=== PATIENT | female | born 1945 | race Caucasian/White ===

== ENCOUNTER → 2016-12-25 | Outpatient (CLI) | payer BC ==
[~2016-12-25] MED LIST: ACET-1138 PO; CLC100 PO; DLCS PR; PRT40 PO; RXC5 PO
[2016-12-25 11:18] LABS: BASO % 0.8 %; BASO ABS # 0.04 K/uL (0-0.2); COMPLETE YES; HEMATOCRIT 40.1 % (37-47); IG% 0.2 %; LYMPH % 41.6 %; LYMPH ABS # 2.21 K/uL (1.2-3.4); MEAN CELL VOLUME 91.6 fL (80-100); MEAN CORPUSCULAR HEMOGLOBIN 29.9 pg (25-34); MEAN CORPUSCULAR HGB CONC 32.7 g/dl (32-36); MEAN PLATELET VOLUME 9.7 fL (7.4-10.4); NEUT % 45.4 %; PLATELET COUNT 284 K/uL (130-400); RED BLOOD COUNT 4.38 M/uL (4.2-5.4); WHITE BLOOD COUNT 5.31 K/uL (4.8-10.8)
[2016-12-25 11:26] LABS: ALT/SGPT 17 U/L (12-78); AST/SGOT 9 U/L (15-37); BLOOD UREA NITROGEN 16 mg/dl (7-18); BUN/CREATININE RATIO 22.1 (10-20); CALCIUM 8.8 mg/dl (8.5-10.1); CARBON DIOXIDE 28 mmol/L (21-32); CHLORIDE 109 mmol/L (98-107); CREATININE 0.71 mg/dl (0.60-1.20); GLUCOSE 87 mg/dl (70-99); POTASSIUM 4.4 mmol/L (3.5-5.1); SODIUM 145 mmol/L (136-145)
[2016-12-25 11:29] LABS: ALB/GLOB RATIO 1.2 (0.9-2); ALKALINE PHOSPHATASE 87 U/L (45-117); CHOLESTEROL 194 mg/dl (0-200); CHOLESTEROL/HDL RATIO 3.5; HDL CHOLESTEROL 56 mg/dl; LDL CHOLESTEROL CALCULATED 114 mg/dl; TRIGLYCERIDES 118 mg/dl (0-150); VERY LOW DENSITY LIPOPROT CALC 24 mg/dl
== END | disposition home or self-care (01) ==
LOC: C.LABBC 07:47
PROVIDERS: ATTEND Internal Medicine
DX: G47.00 Insomnia, unspecified (principal)

== ENCOUNTER → 2017-01-29 | Outpatient (CLI) | payer BC | END | disposition home or self-care (01) | LOC: C.MAMM 07:52 | PROVIDERS: ATTEND Internal Medicine | DX: M81.0 Age-related osteoporosis without current pathological fracture (principal); S82.143A Displaced bicondylar fracture of unspecified tibia, initial encounter for closed fracture; X58.XXXA Exposure to other specified factors, initial encounter ==

== ENCOUNTER → 2017-02-08 | Outpatient (CLI) | payer BC ==
[2017-02-08 10:37] LABS: CALCIUM URINE 10.9 mg/dl
== END | disposition home or self-care (01) ==
LOC: C.LABSPEC 09:39
PROVIDERS: ATTEND Internal Medicine Rheumatology
DX: E55.9 Vitamin D deficiency, unspecified (principal); E61.8 Deficiency of other specified nutrient elements; M81.0 Age-related osteoporosis without current pathological fracture; S42.309A Unspecified fracture of shaft of humerus, unspecified arm, initial encounter for closed fracture; S82.143A Displaced bicondylar fracture of unspecified tibia, initial encounter for closed fracture; X58.XXXA Exposure to other specified factors, initial encounter

== ENCOUNTER → 2017-02-26 | Outpatient (CLI) | payer BC ==
[2017-02-26 17:13] LABS: CALCIUM 8.8 mg/dl (8.5-10.1); CREATININE 0.74 mg/dl (0.60-1.20)
[2017-03-02 16:27] LABS: GAMMA GLOBULIN 0.7 G/DL (0.8-1.7); TOTAL PROTEIN 6.3 G/DL (6.2-8.3)
== END | disposition home or self-care (01) ==
LOC: C.LABBC 14:37
PROVIDERS: ATTEND Internal Medicine Rheumatology
DX: M81.0 Age-related osteoporosis without current pathological fracture (principal); S82.143A Displaced bicondylar fracture of unspecified tibia, initial encounter for closed fracture; S42.309A Unspecified fracture of shaft of humerus, unspecified arm, initial encounter for closed fracture; X58.XXXA Exposure to other specified factors, initial encounter; E55.9 Vitamin D deficiency, unspecified; E61.8 Deficiency of other specified nutrient elements

== ENCOUNTER → 2017-10-14 | Outpatient (CLI) | payer BC ==
[2017-10-14 13:47] LABS: BASO % 0.8 %; BASO ABS # 0.05 K/uL (0-0.2); COMPLETE YES; EOS % 1.9 %; HEMATOCRIT 40.8 % (37-47); IG% 0.3 %; LYMPH % 31.2 %; LYMPH ABS # 1.99 K/uL (1.2-3.4); MEAN CELL VOLUME 92.9 fL (80-100); MEAN CORPUSCULAR HEMOGLOBIN 29.6 pg (25-34); MEAN CORPUSCULAR HGB CONC 31.9 g/dl (32-36); MEAN PLATELET VOLUME 9.5 fL (7.4-10.4); MONO % 9.9 %; NEUT % 55.9 %; PLATELET COUNT 341 K/uL (130-400); RED BLOOD COUNT 4.39 M/uL (4.2-5.4); WHITE BLOOD COUNT 6.38 K/uL (4.8-10.8)
[2017-10-14 14:51] LABS: BLOOD UREA NITROGEN 9 mg/dl (7-18); BUN/CREATININE RATIO 12.5 (10-20); CARBON DIOXIDE 28 mmol/L (21-32); CHLORIDE 105 mmol/L (98-107); CREATININE 0.75 mg/dl (0.60-1.20); GLUCOSE 92 mg/dl (70-99); POTASSIUM 3.9 mmol/L (3.5-5.1); SODIUM 141 mmol/L (136-145)
[2017-10-14 14:55] LABS: RHEUMATOID FACTOR < 10.0 U/mL (0-15)
== END | disposition home or self-care (01) ==
LOC: C.LABBC 09:38
PROVIDERS: ATTEND Physician Assistant Medical
DX: J02.9 Acute pharyngitis, unspecified (principal); R68.2 Dry mouth, unspecified; H04.129 Dry eye syndrome of unspecified lacrimal gland

== ENCOUNTER → 2018-04-13 | Outpatient (CLI) | payer BC | END | disposition home or self-care (01) | LOC: C.LABBC 11:46 | PROVIDERS: ATTEND Internal Medicine Rheumatology | DX: K21.9 Gastro-esophageal reflux disease without esophagitis (principal); E55.9 Vitamin D deficiency, unspecified; M80.00XA Age-related osteoporosis with current pathological fracture, unspecified site, initial encounter for fracture ==